=== PATIENT | male | born 1955 | race Caucasian/White ===

== ENCOUNTER 2017-07-11 07:50 | Day surgery (SDC) | payer BC ==
[~2017-07-11 07:50] MED LIST: Lactated Ringers 1,000 ML IV SCH; Sodium Chloride 0.9% 10 ML Syringe FLUSH PRN
[2017-07-11] MEDS ORDERED: Ketorolac 30 MG/ML SDV IVPUSH ONE (09:00)
[2017-07-11] MEDS ORDERED: Midazolam 1 MG/ML 2 ML SDV IV ONE (09:00)
[2017-07-11] MEDS ORDERED: Propofol 200 MG/20 ML SDV IV ONE (09:00)
[2017-07-11] MEDS ORDERED: Ondansetron 4 MG/2 ML SDV IVPUSH ONE (09:00)
--- NOTE | 2017-07-11 09:09 | PCM.HP ---
H&P History of Present Illness - General Date of Service: 07/11/17 Admit Problem/Dx: Admission Diagnosis/Problem Admission Diagnosis/Problem Colonoscopy Source of Information: Patient, Old Records History Limitations: Reports: No Limitations - History of Present Illness Initial Comments - Free Text/Narative: Here for colonoscopy for hx of polyps - Related Data Allergies/Adverse Reactions: Allergies Allergy/AdvReac Type Severity Reaction Status Date / Time No Known Allergies Allergy Verified 07/10/17 09:01 Home Medications: Home Meds Loratadine [Claritin] 10 mg PO DAILY PRN 07/10/17 [History] Multivitamin [Multi-Vitamin Daily] 1 tab PO DAILY 07/10/17 [History] Tamsulosin HCl [Flomax] 0.4 mg PO DAILY 07/10/17 [History] Past Medical History HEENT History: Reports: Sinusitis Gastrointestinal History: Reports: Colon Polyp, Diverticulosis Genitourinary History: Reports: BPH, Other (See Below) Other Genitourinary History: HEMATURIA Musculoskeletal History: Reports: Arthritis, Fracture - Past Surgical History GI Surgical History: Reports: Colonoscopy, Hernia, Inguinal Social & Family History - Family History GI: Reports: Other (See Below) Other GI Family History: colon cancer from mother side - Tobacco Use Smoking Status *Q: Never Smoker - Caffeine Use Caffeine Use: Reports: Coffee, Soda - Alcohol Use Days Per Week of Alcohol Use: 4 Number of Drinks Per Day: 2 Total Drinks Per Week: 8 H&P Review of Systems - Review of Systems: Review Of Systems: See Below General: Reports: No Symptoms HEENT: Reports: No Symptoms Pulmonary: Reports: No Symptoms Cardiovascular: Reports: No Symptoms Gastrointestinal: Reports: No Symptoms Exam - Exam Exam: See Below - Vital Signs Vital Signs: Last Vital Signs Temp 97.8 F 07/11/17 08:54 Pulse 99 07/11/17 08:54 Resp 18 07/11/17 08:54 BP 132/89 07/11/17 08:54 Pulse Ox Weight: 81.647 kg - Exam General: Alert, Oriented Lungs: Clear to Auscultation, Normal Respiratory Effort Cardiovascular: Regular Rate, Regular Rhythm GI/Abdominal Exam: Soft, Non-Tender *Q Meaningful Use (ADM) - VTE *Q VTE Criteria *Q: - Stroke *Q Stroke Criteria *Q: - AMI *Q AMI Criteria *Q: Problem List Initiated/Reviewed/Updated: Yes Orders Last 24hrs: Active Orders 24 hr Category Date Time Status Patient Status [ADT] Routine ADT 07/11/17 07:45 Ordered Verify Patient Consent Obtain [RC] ASDIRECTED Care 07/11/17 07:45 Active Nothing Per Oral Diet [DIET] Diet 07/11/17 Breakfast Ordered Lactated Ringers [Ringers, Lactated] 1,000 ml Med 07/11/17 07:45 Active IV ASDIRECTED Sodium Chloride 0.9% [Saline Flush] Med 07/11/17 07:45 Active 10 ml FLUSH ASDIRECTED PRN Peripheral IV Insertion Adult [OM.PC] Routine Oth 07/11/17 07:45 Ordered Resuscitation Status Routine Resus Stat 07/10/17 09:07 Ordered Medication Orders Lactated Ringer's (Ringers, Lactated) 1,000 mls @ 125 mls/hr IV ASDIRECTED AMBIKA Last Admin: 07/11/17 08:10 Dose: 125 mls/hr Sodium Chloride (Saline Flush) 10 ml FLUSH ASDIRECTED PRN PRN Reason: Keep Vein Open Last Admin: 07/11/17 08:10 Dose: 10 ml Assessment/Plan Comment:: History of Colon Polyps Ok to proceed with colonoscopy
[2017-07-11] MEDS ORDERED: FLU Vacc QS 2017-18 (36mos UP)/PF 60 MCG/0.5 ML Syringe IM ONE ×2 (09:16→09:30)
--- NOTE | 2017-07-11 09:39 | PCM.OPNOTE ---
- General Post-Op/Procedure Note Date of Surgery/Procedure: 07/11/17 Operative Procedure(s): Colonoscopy Findings: Severe Diverticulosis Pre Op Diagnosis: Hx Polyps Post-Op Diagnosis: Same Anesthesia Technique: MAC Primary Surgeon: Jose Singleton Anesthesia Provider: Deana Butler Complications: None Condition: Good
--- NOTE | 2017-07-11 14:25 | OR ---
DATE OF OPERATION: 07/11/2017 SURGEON: Jose Singleton MD PREOPERATIVE DIAGNOSES: 1. History of colon polyps. 2. Diverticulosis. POSTOPERATIVE DIAGNOSIS: Severe diverticulosis. PROCEDURE: Colonoscopy. ANESTHESIA: IV sedation. DESCRIPTION OF PROCEDURE: The patient was brought to the procedure room, where he was placed on his left side and IV sedation administered. Digital rectal exam was performed, which was normal. The colonoscope was inserted and advanced to the level of the cecum without difficulty. Cecal position was confirmed by identifying the appendiceal lumen and ileocecal valve. Prep was fair with some thick stool remaining throughout that was mostly suctioned and irrigated and allowed adequate visualization for the polyps. Upon withdrawing the scope, he had diverticula throughout the entire colon but most concentrated in the sigmoid colon. Rectum was normal and retroflexion was normal. Air was removed and the scope withdrawn. The patient tolerated the procedure well and returned to recovery in stable condition. Recommend a colonoscopy again in 5 years. /[id number] KARYN/AMANDA
== END 2017-07-11 11:15 | disposition home or self-care (01) ==
LOC: MERGE 07:50 → FB.SDS 07:50
PROVIDERS: ATTEND Surgery
DX: Z86.010 Personal history of colon polyps (principal); Z12.11 Encounter for screening for malignant neoplasm of colon; K57.30 Diverticulosis of large intestine without perforation or abscess without bleeding; N40.0 Benign prostatic hyperplasia without lower urinary tract symptoms; Z79.899 Other long term (current) drug therapy
CPT/HCPCS: 45378; J1885; J2250; J2405; J2704; J7050; J7120